=== PATIENT | female | born 1995 | race Hispanic/Latino ===

== ENCOUNTER → 2016-06-08 | Outpatient (CLI) | payer MEDICAID ==
--- NOTE | 2016-06-08 12:30 | Diagnostic Imaging Report ---
EXAM: Left breast ultrasound. INDICATION: Palpable lump. FINDINGS: There is a 1.7 x 1 6 x 1.6 cm lobulated solid mass with mild internal vascularity seen at 12:00 zone 6 cm from the nipple. There is a no associated shadowing. There is also a simple cyst at the 12:00 zone 4 cm from the nipple measuring 1.4 cm. The other breast quadrant central retroareolar region demonstrates no significant abnormality. 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 Confirmation with an ultrasound-guided biopsy is recommended. If not performed, then serial followup ultrasounds, starting at 6 months, is recommended. The findings and recommendations were discussed with the patient. BI-RADS 4A. Report faxed to Kirsten Hugo APRN, at 12:35 p.m. 06/08/2016/[email or web address] Dictated by: Dictated on workstation # [id number]
== END ==
LOC: RAD 11:21
PROVIDERS: ATTEND Nurse Practitioner Family
DX: N63 Unspecified lump in breast (principal); N64.4 Mastodynia
CPT/HCPCS: 76641